=== PATIENT | male | born 1985 ===

== ENCOUNTER 2017-02-02 20:02 | Inpatient (IN) ==
--- NOTE | 2017-02-02 20:29 | Emergency Department Note ---
Arrival - Arrival Chief Complaint: Abdominal / Flank Pain Stated Complaint: Abd Pain ED Nursing Triage Note: Patient presents from [facility] with a complaint of abdominal pain. Initially presented to [facility] with hyperventilation, per report he drank a red bull and smoked marijuana. Found to have elevated WBC. Mode of Arrival: Stretcher Time Seen by Provider: 02/02/17 20:26 - History of Present Illness HPI Narrative: This is a 31-year-old male who presents from the [facility] he presented with abdominal pain and hyperventilation with carpal pedal spasm was found to have a 23,000 white blood cell count. Because of his abdominal pain he was sent to the emergency department at [place] for further evaluation. He has a history of seizure disorder but has not had a seizure recently. Allergies/Adverse Reactions: Allergies Allergy/AdvReac Type Severity Reaction Status Date / Time No Known Allergies Allergy Unverified 02/02/17 20:09 Home Medications: Home Medications Medication Instructions Recorded Confirmed Type No Known Home Medications [No 02/02/17 02/02/17 History Known Home Medications] Review of System - Review of System Constitutional: Absent: fever, night sweats Eyes: Absent: redness, vision change Head/Ears/Nose/Throat: Absent: epistaxis, nasal drainage Respiratory: Absent: respiratory distress, wheezing Cardiovascular: Absent: dyspnea on exertion, orthopnea Gastrointestinal: Present: abdominal pain. Absent: diarrhea, constipation Genitourinary male: Absent: dysuria, hematuria, discharge Musculoskeletal: Absent: joint swelling, lower back pain, neck pain Skin: Absent: change in color, change in hair/nails Neurological: Absent: numbness, paresthesias Psychiatric: Absent: suicidal thoughts, homicidal thoughts Endocrine: Absent: heat intolerance, polydipsia Hematological/Lymphatic: Absent: easy bruising, lymphadenopathy Allergic/Immunologic: Absent: urticaria, itchy eyes Medical,Surgical,& Family Hx - Medical History Neurology: History of: Seizures - Social History Smoking Status: Unknown if ever smoked Frequency of Alcohol Use: Occasionally Type of Drug Use: Marijuana Exam Vital Signs: Vital Signs Temperature 98.6 F 02/02/17 20:03 Pulse Rate 74 02/02/17 20:03 Respiratory Rate 22 02/02/17 20:03 Blood Pressure 128/81 02/02/17 20:03 O2 Sat by Pulse Oximetry 99 08/20/17 20:03 - General Exam limited due to: ALOC - Head Head exam: Present: atraumatic, normocephalic - Eye Eye exam: Present: normal appearance, PERRL, EOMI - ENT ENT exam: Present: normal exam, normal oropharynx - Neck Neck exam: Present: normal inspection, full ROM - Chest Chest inspection: Present: normal inspection - Respiratory Respiratory exam: Present: normal lung sounds bilaterally - Cardiovascular Cardiovascular exam: Present: regular rate, normal rhythm - Abdominal Exam Abdominal exam: Present: other (Diffuse tenderness without guarding or rebound) - Extremities Exam Extremities exam: Present: normal inspection, full ROM - Back Exam Back exam: Present: normal inspection, full ROM - Neurological Exam Neurological exam: Present: alert, oriented X3 - Psychiatric Psychiatric exam: Present: normal affect, normal mood - Skin Skin exam: Present: warm, dry
[2017-02-02] MEDS ORDERED: KETOROLAC 30 MG/1 ML VIAL IV STA (20:32)
[2017-02-02] MEDS ORDERED: KETOROLAC 30 MG/1 ML VIAL ONE (20:37)
[2017-02-02 20:41] LABS: Basophils # 0.1 10*3/uL (0.0-0.2); Basophils % 0.2 % (0.0-0.8); Eosinophils # 0.1 10*3/uL (0.0-0.87); Eosinophils % 0.3 % (0.00-10.9); Hematocrit 40.3 VOL% (42.0-52.0); Hemoglobin 13.8 GM/DL (14.0-18.0); Immature Granulocytes % 0.6 %; Immature Granulocytes Absolute 0.12 #; Lymphocytes # 1.8 10*3/uL (1.4-4.0); Lymphocytes % 8.4 % (21.2-54.2); Mean Corpuscular HGB Conc 34.2 GM/DL (32-36); Mean Corpuscular Hemoglobin 31 PG (27-34); Mean Platelet Volume 9.6 FL (9.6-12.0); Monocytes # 1.4 10*3/uL (0.11-0.8); Monocytes % 6.6 % (1.7-12.7); Neutrophils # 17.5 10*3/uL (1.4-7.4); Neutrophils % 83.9 % (38.7-73.9); Platelet Count 321 T/CUMM (130-400); Red Blood Count 4.43 MC/CUMM (3.8-5.5); Red Cell Distribution Width 12.4 % (9.3-17.3); White Blood Count 20.9 T/CUMM (4-12)
[2017-02-02 20:54] LABS: Apearance,Urine CLEAR (Clear); Bilirubin,Urine Negative (Negative); Blood, Urine Small mg/dL (Negative); Glucose,Urine (UA) Negative (Negative); Ketones,Urine Negative (Negative); Nitrite,Urine Negative (Negative); Protein,Urine Negative; RBC,Urine 8 /HPF (0-4); Urine Color Colorless (Yellow); Urine Specific Gravity 1.018 (1.001-1.035); Urine Urobilinogen < 2.0 EU/DL (0.2-1.0); WBC,Urine 2 /HPF (0-6)
[2017-02-02 20:57] LABS: Alanine Aminotransferase 14 U/L (16-61); Albumin 3.6 G/DL (3.4-5.0); Alkaline Phosphatase 62 U/L (45-117); Aspartate Amino Transferase 16 U/L (0-37); Barbiturates Screen,Urine Negative (Negative); Benzodiazepines Screen,Urine Negative (Negative); Bilirubin,Total < 0.39 MG/DL (0.2-1.0); Blood Urea Nitrogen 7 MG/DL (7-18); Calcium 8.4 MG/DL (8.5-10.1); Cannabinoid Screen,Urine Positive (Negative); Glucose 99 MG/DL (74-106); Opiate Screen,Urine Positive (Negative); Osmolality,Calculated 280.1 MOS/KG (273-304); Phencyclidine Screen,Urine Negative (Negative); Potassium 4.1 MMOL/L (3.5-5.1); Sodium 142 MMOL/L (136-145); Total Protein 6.1 G/DL (6.4-8.3)
[2017-02-02 22:24] LABS: Ammonia 33 UMOL/L (11-32)
[2017-02-02 22:27] LABS: Lactic Acid 1.4 MMOL/L (0.4-2.0)
[2017-02-02] MEDS ORDERED: ONDANSETRON 4 MG/2 ML VIAL IV PRN (22:42)
[2017-02-03] MEDS: MORPHINE 2 MG/1 ML SYRINGE IV PRN ×5 (00:39→21:21)
[2017-02-03] MEDS: LACTATED RINGERS 1,000 ML IV SCH ×3 (00:40→18:29)
[2017-02-03 06:49] LABS: Basophils % 0.3 % (0.0-0.8); Eosinophils # 0.2 10*3/uL (0.0-0.87); Eosinophils % 1.8 % (0.00-10.9); Hematocrit 39.9 VOL% (42.0-52.0); Hemoglobin 13.5 GM/DL (14.0-18.0); Immature Granulocytes % 0.7 %; Immature Granulocytes Absolute 0.08 #; Lymphocytes # 2.3 10*3/uL (1.4-4.0); Lymphocytes % 19.5 % (21.2-54.2); Mean Corpuscular HGB Conc 33.8 GM/DL (32-36); Mean Corpuscular Hemoglobin 31 PG (27-34); Mean Corpuscular Volume 91.5 FL (87-102); Mean Platelet Volume 9.3 FL (9.6-12.0); Monocytes % 8.8 % (1.7-12.7); Neutrophils # 8.1 10*3/uL (1.4-7.4); Neutrophils % 68.9 % (38.7-73.9); Platelet Count 303 T/CUMM (130-400); Red Blood Count 4.36 MC/CUMM (3.8-5.5); Red Cell Distribution Width 12.6 % (9.3-17.3); White Blood Count 11.7 T/CUMM (4-12)
--- NOTE | 2017-02-03 07:04 | General Surg History&Physical ---
Assessment and Plan - Time spent with patient Time spent with patient: Greater than 30 minutes (1) Abdominal pain Status: Acute Assessment and plan: Please note that this note is a late entry. I actually saw patient earlier this morning. Etiology of his pain is unclear. I do not see a clear explanation on imaging. His exam is unusual. He is not giving a good history and only will whisper an answer to me. Apparently he was the same way with the staff in the emergency room last night. I asked him if it hurt to talk and he said no. We will check a gallbladder ultrasound. Current Visit: Yes Qualifiers: Abdominal location: left upper quadrant Qualified Code(s): R10.12 - Left upper quadrant pain History of Present Illness Chief complaint: Abdominal pain History of present illness: Mr. Butterfield is a 31 year old male Who for over a month says that he has had abdominal pain. Pain became worse about 3 days ago. He says that it is severe and localized in his left upper quadrant and then radiates to his right upper quadrant. The pain is intermittent and more recently has become constant. It is associated with nausea but no vomiting. He has not had a change in appetite. He does not know of any aggravating or alleviating factors. He does not know if it is related to meals. He has had normal bowel movements. He has not had any passage of blood or vomiting blood. He had a CT scan obtained for which I do not have a formal report but apparently the outside radiologist at night read as negative. Home Medications Medication Instructions Recorded Confirmed Type No Known Home Medications [No 02/02/17 02/02/17 History Known Home Medications] Allergies Allergy/AdvReac Type Severity Reaction Status Date / Time No Known Allergies Allergy Unverified 02/02/17 20:09 Medical,Surgical,& Family Hx - Medical History Neurology: History of: Seizures - Surgical History Surgical History: noncontributory - Family History Family History: noncontributory - Social History Smoking Status: Current some day smoker Frequency of Alcohol Use: Occasionally Type of Drug Use: Marijuana Exam - Constitutional Vitals: Period Temp Pulse Resp BP Sys/Ambrocio Pulse Ox Last 24 Hr 98.2 F-98.6 F 54-74 12-22 115-139/77-90 97-100 General appearance: no acute distress - Head Head exam: Present: normocephalic - Eye Eye exam: Absent: scleral icterus Pupils: Present: EASTON - Neck Neck exam: Present: trachea midline. Absent: tenderness, thyromegaly - Respiratory Respiratory exam: Present: clear to auscultation bilaterally. Absent: accessory muscle use - Cardiovascular Cardiovascular exam: Present: RRR - GI/Abdominal GI/Abdominal exam: Present: normal bowel sounds, guarding, tenderness, soft, other (His abdominal exam is difficult. He seems to be much less tender if he is distracted and talking to me). Absent: distended, mass, rebound - Extremities Exam Extremities exam: Absent: edema - Neurological Exam Neurological exam: Present: alert, oriented X3. Absent: motor sensory deficit Speech: Present: normal - Skin Skin exam: Present: normal color - Constitutional Constitutional: Present: chills. Absent: anorexia, fever(s), weight loss - Cardiovascular Cardiovascular: Absent: chest pain at rest, chest pain with activity, dyspnea, dyspnea on exertion, syncope - Respiratory Respiratory: Absent: dyspnea, hemoptysis, dyspnea on exertion - Gastrointestinal Gastrointestinal: Present: abdominal pain, nausea. Absent: bloating, constipation, cramping, diarrhea, hematemesis, hematochezia, vomiting, jaundice - Genitourinary Genitourinary: Present: difficulty urinating. Absent: hematuria - Musculoskeletal Musculoskeletal: Absent: back pain - Neurological Neurological: Absent: focal weakness, syncope - Endocrine Endocrine: Absent: polyuria Hematologic/Lymphatic: Absent: easy bleeding, easy bruising Quality Measures - VTE Contraindication to Pharmacological VTE Prophylaxis: High Risk of Bleeding Results - Labs CBC & BMP: 02/03/17 06:23 02/02/17 20:18 Lab Results: I have reviewed the past 24 hour labs - Diagnostic Findings Procedure: CT Abdomen and Pelvis: image reviewed by me
--- NOTE | 2017-02-03 07:04 | CT Report ---
CT of the abdomen and pelvis with intravenous contrast. No oral contrast was administered. Axial images were obtained with sagittal and coronal reconstructions. Indication: Right lower quadrant abdominal pain. 100 cc Omni 350. Comparison: Exam from earlier the same day. This study was The previous study is from an outside hospital. There is a preliminary report from [facility]. The heart is normal in size. There are hypoaeration changes present within the lung bases. The liver is normal in size and density. The left lobe of the liver wraps around the anterior aspect of the spleen. Within the far left lobe of the liver, there is a 10 mm hypodensity, with vague margins, still visible on the delayed images. There is no biliary ductal dilatation. The spleen is normal in size. There is no adrenal enlargement. The kidneys are normal in size, location, and contour, without focal lesion or hydronephrosis. The ureters are normal in course and caliber. A Arcos catheter is in place within within the urinary bladder. No discrete urinary bladder abnormality is seen. There is no free air or free fluid noted within the peritoneal cavity. The abdominal aorta is of normal caliber. There is no pancreatic abnormality seen. No adenopathy is noted. The gastric contour is normal. The loops of small intestine are not dilated. The terminal ileum and appendix present a normal appearance. The appendix is not dilated, measuring 4.7 mm in diameter. There is no wall thickening or surrounding inflammation. No air is seen within the appendix. The colon is not dilated. There is no colonic wall thickening seen. There are bilateral L5 pars defects, without malalignment. Impression: 1. Hypoaeration changes at the lung bases. 2. 10 mm nonspecific liver lesion. Most commonly in a patient of this age, mildly complicated cyst versus hemangioma. 3. The appendix is of normal diameter without inflammatory change seen. 4. Bilateral L5 pars defects without malalignment. The CT exam was performed using one or more of the following dose reduction techniques: Automated exposure control, adjustment of the mA and/or kV according to patient size, or use of iterative reconstruction technique. PROCEDURE INTERPRETED AT [facility] DEPARTMENT OF RADIOLOGY Final Report Signed by: Dr. Lori Burton
[2017-02-03 07:10] LABS: Albumin 3.4 G/DL (3.4-5.0); Bilirubin,Total 0.5 MG/DL (0.2-1.0); Calcium 8.5 MG/DL (8.5-10.1); Osmolality,Calculated 278.1 MOS/KG (273-304); Potassium 4.3 MMOL/L (3.5-5.1); Total Protein 5.9 G/DL (6.4-8.3)
--- NOTE | 2017-02-03 07:50 | Ultrasound Report ---
Gallbladder ultrasound. Indication: Right upper quadrant abdominal pain. The liver is normal in size and density. No focal liver lesion is identified. The lesion seen on CT is not visible on the ultrasound, likely due to its far left location, projecting over the stomach. There is no intrahepatic biliary ductal dilatation. The common duct measures 4.1 mm. No gallstones are seen. There is no gallbladder wall thickening or fluid around the gallbladder. The right kidney presents a normal appearance. The pancreas is partially obscured by bowel gas. Visualized portions appear normal. The IVC is patent. Where visualized, the abdominal aorta is of normal caliber. Impression: Likely due to its location, the small lesion in the liver is not visible by ultrasound. The Ultrasound images were captured and stored. PROCEDURE INTERPRETED AT [facility] DEPARTMENT OF RADIOLOGY Final Report Signed by: Dr. Lori Burton
[2017-02-03] MEDS: PANTOPRAZOLE 40 MG TABLET PO SCH (08:06)
[2017-02-04] MEDS: MORPHINE 2 MG/1 ML SYRINGE IV PRN ×2 (01:15→20:03)
[2017-02-04] MEDS: LACTATED RINGERS 1,000 ML IV SCH ×3 (02:49→19:20)
[2017-02-04] MEDS ORDERED: MAGNESIUM HYDROXIDE SUSP 30 ML UDCUP PO PRN (06:41)
[2017-02-04] MEDS ORDERED: BISACODYL 10 MG SUPP RECTAL PRN (06:42)
[2017-02-04] MEDS: PANTOPRAZOLE 40 MG TABLET PO SCH (08:10)
--- NOTE | 2017-02-04 12:19 | General Surgery Progress Note ---
Assessment and Plan (1) Abdominal pain Status: Acute Assessment and plan: Please note that this note is a late entry. I actually saw patient earlier this morning. Etiology of his pain is unclear. I do not see a clear explanation on imaging. His exam is unusual. He is not giving a good history and only will whisper an answer to me. Apparently he was the same way with the staff in the emergency room last night. I asked him if it hurt to talk and he said no. We will check a gallbladder ultrasound. 02/04: He feels a little better but it is difficult to get much history from him. He is awake and alert but will only whisper an answer. He does not communicate well. He states that he still has some abdominal pain. His abdomen is nontender distracting him and talking to me. His ultrasound was negative. He is asking for food and states that he is hungry. I think this probably means that we do not have a significant intra-abdominal process going on I will recheck his lab. Current Visit: Yes Qualifiers: Abdominal location: left upper quadrant Qualified Code(s): R10.12 - Left upper quadrant pain Subjective Patient reports: Present: feels better, pain is less. Absent: nausea, vomiting , fever Exam - Constitutional Vitals: Period Temp Pulse Resp BP Sys/Ambrocio Pulse Ox Last 24 Hr 97.4 F-97.9 F 48-76 16-18 118-145/73-81 94-99 General appearance: no acute distress - Respiratory Respiratory exam: Absent: accessory muscle use - GI/Abdominal GI/Abdominal exam: Present: soft. Absent: distended, tenderness Results - Labs CBC & BMP: 02/03/17 06:23 02/03/17 06:23 Lab Results: I have reviewed the past 24 hour labs Quality Measures - VTE Contraindication to Pharmacological VTE Prophylaxis: High Risk of Bleeding Specialty Discharge - Follow Up or Referrals Follow up with: Daniel Cali III., MD [Physician] -
[2017-02-04 13:03] LABS: Basophils # 0.1 10*3/uL (0.0-0.2); Basophils % 0.7 % (0.0-0.8); Eosinophils # 0.1 10*3/uL (0.0-0.87); Eosinophils % 1.1 % (0.00-10.9); Hematocrit 40.4 VOL% (42.0-52.0); Hemoglobin 13.9 GM/DL (14.0-18.0); Immature Granulocytes % 0.4 %; Immature Granulocytes Absolute 0.04 #; Lymphocytes # 1.5 10*3/uL (1.4-4.0); Lymphocytes % 16.6 % (21.2-54.2); Mean Corpuscular HGB Conc 34.4 GM/DL (32-36); Mean Corpuscular Hemoglobin 31 PG (27-34); Mean Corpuscular Volume 90.6 FL (87-102); Mean Platelet Volume 9.4 FL (9.6-12.0); Monocytes # 0.5 10*3/uL (0.11-0.8); Neutrophils # 6.7 10*3/uL (1.4-7.4); Neutrophils % 75.2 % (38.7-73.9); Platelet Count 320 T/CUMM (130-400); Red Blood Count 4.46 MC/CUMM (3.8-5.5); Red Cell Distribution Width 12.1 % (9.3-17.3); White Blood Count 8.9 T/CUMM (4-12)
[2017-02-04 13:34] LABS: Albumin 3.5 G/DL (3.4-5.0); Bilirubin,Total 0.5 MG/DL (0.2-1.0); Calcium 8.9 MG/DL (8.5-10.1); Osmolality,Calculated 279.3 MOS/KG (273-304); Potassium 4.3 MMOL/L (3.5-5.1); Total Protein 6.3 G/DL (6.4-8.3)
[2017-02-04] MEDS: ACETAMINOPHEN 325 MG TABLET PO PRN (15:03)
--- NOTE | 2017-02-04 15:05 | Gastrointestinal Consult Note ---
Assessment and Plan (1) Abdominal pain Status: Acute Assessment and plan: 02/04-Sudden onset of abdominal pain with associated nausea without vomiting, precipiated by meals, wavering in intensity and duration. CT of abdomen w/o acute abdominal processes noted. Hx of THC use with report of drinking two energy drinks and smoking THC prior to onset. No prior endoscopy in the past. Plan and addendum to follow by Dr Zepeda. Current Visit: Yes Qualifiers: Abdominal location: left upper quadrant Qualified Code(s): R10.12 - Left upper quadrant pain History of Present Illness Chief complaint: Abdominal pain History of present illness: Mr. Butterfield is a 31 year old male who was admitted to the hospital with report of abdominal pain x 3 days. Pt is a fair historian and doesnt offer very much information. No family present during visit. Pt states he was in his usual state of health until Friday night. He states he smoked THC and drank two energy drinks just prior to onset. Shortly after this he had a fairly sudden onset of mid umbilical abdominal pain that radiated across his abdomen and was associated with nausea w/o vomiting. He states the pain lasted for several minutes at a time and was not relieved by any known factors. He was initially seen at [facility] and evaluated with CT of abdomen which was found to be negative [place] [id number]. Pt was then referred to our facility for further evaluation. Pt states he has never had pain like this before. He states he has had no vomiting, denies any melena or hematochezia. He denies any regular NSAID use other than occasional Ibruprofen. He states he does not drink alcohl regular or use other illicit drugs other than THC. He denies any associated weight loss but states he has had chills with this. On admission to our facility he had a CT of abdomen without acute abdominal findings noted. Gallbaldder ultrasound is negative. WBC are unremarkable today and he is afebrile. Home Medications Medication Instructions Recorded Confirmed Type No Known Home Medications [No 02/02/17 02/02/17 History Known Home Medications] Allergies Allergy/AdvReac Type Severity Reaction Status Date / Time No Known Allergies Allergy Unverified 02/02/17 20:09 Medical,Surgical,& Family Hx - Medical History Neurology: History of: Seizures - Social History Smoking Status: Current some day smoker Frequency of Alcohol Use: Occasionally Type of Drug Use: Marijuana 12 point system: reviewed and no additional remarkable complaints except as stated - Constitutional Constitutional: Present: as per HPI - EENT Eyes: Present: as per HPI Ears: Present: as per HPI Nose, mouth and throat: Present: as per HPI, dysphagia - Cardiovascular Cardiovascular: Present: as per HPI - Respiratory Respiratory: Present: as per HPI - Gastrointestinal Gastrointestinal: Present: as per HPI, abdominal pain, nausea - Genitourinary Genitourinary: Present: as per HPI - Musculoskeletal Musculoskeletal: Present: as per HPI - Neurological Neurological: Present: as per HPI - Psychiatric Psychiatric: Present: as per HPI - Endocrine Endocrine: Present: as per HPI - Hematologic/Lymphatic Hematologic/Lymphatic: Present: as per HPI Exam - Constitutional Vitals: Period Temp Pulse Resp BP Sys/Ambrocio Pulse Ox Last 24 Hr 97.4 F-97.9 F 48-76 16-18 118-145/73-81 94-99 General appearance: normal weight, no acute distress - Head Head exam: Present: normal inspection, normocephalic - Eye Eye exam: Present: other (lids and conjunctiva unremarkable). Absent: scleral icterus - ENT ENT exam: Present: normal exam, normal oropharynx - Neck Neck exam: Present: normal inspection - Respiratory Respiratory exam: Present: clear to auscultation bilaterally. Absent: rales, rhonchi, wheezes - Cardiovascular Cardiovascular exam: Present: regular rate and rhythm. Absent: diastolic murmur , JVD, systolic murmur - GI/Abdominal GI/Abdominal exam: Present: normal bowel sounds, tenderness, soft. Absent: ascites, distended, mass, organomegaly - Extremities Exam Extremities exam: Present: normal inspection, full ROM - Back Exam Back exam: Present: normal inspection - Neurological Exam Neurological exam: Present: alert, oriented X3 - Psychiatric Psychiatric exam: Present: normal affect, normal mood - Skin Skin exam: Present: normal color, warm, dry Results - Labs CBC & BMP: 02/04/17 12:30 02/04/17 12:30 Lab Results: I have reviewed the past 24 hour labs - Diagnostic Findings Procedure: CT Abdomen and Pelvis: report reviewed by me Quality Measures - VTE Contraindication to Pharmacological VTE Prophylaxis: High Risk of Bleeding Specialty Discharge - Follow Up or Referrals Follow up with: Daniel Cali III., MD [Physician] -
[2017-02-05] MEDS: LACTATED RINGERS 1,000 ML IV SCH ×3 (03:31→15:20)
[2017-02-05] MEDS: PANTOPRAZOLE 40 MG TABLET PO SCH (10:09)
--- NOTE | 2017-02-05 13:28 | History and Physical Update ---
History and Physical Update - History and Physical H&P was reviewed, the patient examined and there: are no changes in the patients condition since last H&P was completed. - Physical Exam Mental Status: alert and oriented Heart: regular rate and rhythm Lung: clear to auscultation Abdomen: within normal limits Vitals: within normal limits
--- NOTE | 2017-02-05 13:40 | Operative Note ---
Date of procedure: 02/05/17 Pre-op diagnosis: Upper abdominal pain, dysphagia Procedure: Procedure: Esophagogastroduodenoscopy with bougie dilation esophagus Brief clinical abstract: 31-year-old male is admitted with recent upper abdominal pain and nausea. He also states that he has had difficulty swallowing solids the last few months intermittently. Indication for procedure: Upper abdominal pain, esophageal dysphagia Endoscopic findings:[After informed consent was obtained, the patient was placed in the left lateral decubitus position. The gastroscope was inserted in the upper esophagus under direct vision with no resistance encountered. Esophageal mucosa appeared normal down to the distal esophagus. There was a single longitudinal erosion around 5 mm in length extending to the squamocolumnar junction consistent with reflux etiology. A mildly obstructive fibrous appearing stricture was also noted at that level consistent with reflux cause. 2 cm hiatal hernia was noted. The endoscope was advanced in the stomach which was carefully examined including retroflexed view of the cardia and fundus with no abnormality seen. The pyloric channel was normal. In the duodenal bulb, there was a moderate amount of subepithelial hemorrhage and 2 white based ulcers ranging in size from 5-8 mm diameter. Second and third portion of the duodenum appeared normal. The endoscope was withdrawn and Rodriguez dilator size 54 Bulgarian inserted in the upper esophagus and advanced beyond the level of the GE junction with mild resistance encountered. No blood was noted on the dilator afterwards and he had no chest pain. He appeared to tolerate the procedure well. Impression: #1 erosive esophagitis and distal esophageal stricture secondary to GERD-status post bougie dilation #2 small hiatal hernia #3 duodenal bulb ulcers Recommendations: Twice daily PPI therapy for now. He will need treatment for Helicobacter pylori infection when his nausea has resolved. Could advance diet and discharge home if tolerating. Anesthesia: MAC Surgeon / Physician: Rojas Zepeda Estimated blood loss: none Specimens: none sent Condition: stable Disposition: post procedure unit Results - Labs CBC & BMP: 02/04/17 12:30 02/04/17 12:30 Discharge Plan - Discharge Medications No Action No Known Home Medications [No Known Home Medications] - Follow Up or Referral Follow Up: Daniel Cali III., MD [Physician] - - Forms/Instructions Instructions: Acute Abdominal Pain (DC)
--- NOTE | 2017-02-05 13:44 | Anesthesia Post-Op ---
Anesthesia Post OP - Post Ansesthetic Evaluation Patient seen in post op: Yes Resp: within normal limits CV: within normal limits Mental: within normal limits Temp: within normal limits [id number]: within normal limits Nausea and Vomiting: within normal limits Pain: within normal limits
--- NOTE | 2017-02-05 14:47 | General Surgery Progress Note ---
Assessment and Plan (1) Abdominal pain Status: Acute Assessment and plan: Please note that this note is a late entry. I actually saw patient earlier this morning. Etiology of his pain is unclear. I do not see a clear explanation on imaging. His exam is unusual. He is not giving a good history and only will whisper an answer to me. Apparently he was the same way with the staff in the emergency room last night. I asked him if it hurt to talk and he said no. We will check a gallbladder ultrasound. 02/04: He feels a little better but it is difficult to get much history from him. He is awake and alert but will only whisper an answer. He does not communicate well. He states that he still has some abdominal pain. His abdomen is nontender distracting him and talking to me. His ultrasound was negative. He is asking for food and states that he is hungry. I think this probably means that we do not have a significant intra-abdominal process going on I will recheck his lab. 02/05: He had upper endoscopy today which shows that the etiology of his pain is likely peptic ulcer disease. I discussed this case with Dr. Zepeda. I do not think that he needs IV antibiotics and I think that he is should be fine to go home with ulcer treatment. His abdomen appears better and I see no evidence of an acute abdomen. Current Visit: Yes Qualifiers: Abdominal location: left upper quadrant Qualified Code(s): R10.12 - Left upper quadrant pain Subjective Patient reports: Present: feels better, pain is less. Absent: nausea, vomiting Exam - Constitutional Vitals: Period Temp Pulse Resp BP Sys/Ambrocio Pulse Ox Last 24 Hr 97.6 F-98.8 F 55-70 13-24 105-152/69-094 96-100 General appearance: no acute distress - Head Head exam: Present: normocephalic - Eye Eye exam: Absent: scleral icterus - Respiratory Respiratory exam: Absent: accessory muscle use - GI/Abdominal GI/Abdominal exam: Present: soft. Absent: distended, tenderness Results - Labs CBC & BMP: 02/04/17 12:30 02/04/17 12:30 Lab Results: I have reviewed the past 24 hour labs Quality Measures - VTE Contraindication to Pharmacological VTE Prophylaxis: High Risk of Bleeding Specialty Discharge - Follow Up or Referrals Follow up with: Viraj,Bill III., MD [Physician] -
[2017-02-05] MEDS: ACETAMINOPHEN 325 MG TABLET PO PRN (15:05)
--- NOTE | 2017-02-05 15:45 | Discharge Summary ---
Hospital Course - Hospital Course Hospital Course: Patient is a 31-year-old male admitted to the general surgery service for acute abdominal pain. CT scan revealed a 10 mm nonspecific liver lesion likely complicated cyst versus hemangioma. Appendix appeared normal. No intra- abdominal findings to explain the pain is identified. Gallbladder ultrasound was performed without revealing biliary etiology of pain. Gastroenterology was consulted for further evaluation and performed EGD which revealed erosive esophagitis with distal esophageal stricture requiring dilation, small hiatal hernia, and duodenal bulb ulcers. Ultimately, Dr. Zepeda recommended to continue with PPI therapy twice daily as well as H pylori treatment. Patient was educated on low acid diet as well as the necessity for compliance for H. pylori and PPI therapy to prevent further complication. He should follow-up with gastroenterology as scheduled. No surgical follow-up is required. Diagnosis - Discharge Diagnosis (1) Erosive esophagitis Status: Acute (2) Esophageal stricture Status: Acute (3) Hiatal hernia Status: Acute (4) Duodenal bulb ulcer Status: Acute (5) Liver lesion Status: Acute Specialty Discharge - Follow Up or Referrals Follow up with: Daneil Cali III., MD [Physician] - (CALL NEEDED) Rojas Zepeda MD [Physician] - (Per Dr. Zepeda re: esophagitis, duodenal ulcers and h. pylori eradication testing) Discharge Plan - Discharge Data Disposition: Disch To Home/Self Care Condition at Discharge: Stable Discharge Diet: other (GERD diet see below) Activity: resume usual activities as tolerated Hygiene: no restrictions Driving: no restrictions Contact your physician if you experience:: fever over 101, Redness or swelling, Nausea/Vomiting, Bleeding (vomiting blood or coffee ground appearance, black stool or blood with bowel movement), pain uncontrolled by pain medications - Discharge Medications New Amoxicillin 2 tablet PO BID #56 tablet Clarithromycin [Biaxin] 500 mg PO Q12HR #28 tablet Pantoprazole Tab [Protonix Tab] 40 mg PO BID #60 tablet Ondansetron Tab [Zofran Tab] 4 mg PO Q6HR PRN #20 tablet PRN Reason: Nausea/Vomiting - Follow Up or Referral Follow Up: Daniel Cali III., MD [Physician] - (CALL NEEDED) Rojas Zepeda MD [Physician] - (Per Dr. Zepeda re: esophagitis, duodenal ulcers and h. pylori eradication testing) - Forms/Instructions Instructions: Hiatal Hernia (DC), Helicobacter Pylori (GEN), Diet for Ulcers and Gastritis (GEN), Gastroesophageal Reflux Disease (DC), Esophageal Stricture (DC) Additional Discharge Instructions: Pt to f/u in [address] scan abd/ pelvis in f/u liver lesion. Pt was notified by telephone and verbally expressed understanding of instructions and received information for scheduled appt on . See documents scanned. Exam - Constitutional Vitals: Period Temp Pulse Resp BP Sys/Ambrocio Pulse Ox Last 24 Hr 97.6 F-98.8 F 55-70 13-24 105-152/69-094 96-100 General appearance: no acute distress - Head Head exam: Present: normocephalic - Cardiovascular Cardiovascular exam: Present: regular rate and rhythm - GI/Abdominal GI/Abdominal exam: Present: normal bowel sounds, tenderness (epigastric), soft. Absent: distended, guarding - Extremities Exam Extremities exam: Absent: calf tenderness, edema - Neurological Exam Neurological exam: Present: alert, normal gait - Skin Skin exam: Present: normal color Discharge Results Procedures and tests throughout hospitalization: Pending Orders 02/02/17 21:51 Blood Culture Stat EGD on February 05, 2017 with bougie dilation of the esophagus. Findings included #1 erosive esophagitis #2 esophageal stricture #3 hiatal hernia #4 duodenal bulb ulcers Labs on day of discharge: Preliminary micro results at discharge 02/02/17 21:51 Blood Culture - Preliminary Blood No growth at 1 day 02/02/17 20:18 Blood Culture - Preliminary Blood No growth at 1 day - Imaging and Cardiology Procedure: CT Abdomen and Pelvis: image reviewed by me, report reviewed by me ( Liver lesion hemangioma versus comp gated cyst), Ultrasound: image reviewed by me, report reviewed by me (Gallbladder) DS: Provider Date of admission: 02/02/17 22:42 Primary care physician: Edith Fernandez MD Attending physician on admission: Daniel Cali III., Consults: 02/04/17 14:18 Consult to Physician [CONS] Routine Comment: for abdominal pain Consulting Provider: Rojas Zepeda Consulting Provider Notified: Yes When should Consulting Provider be notified: Now Consult to Specialist Group: Gastroenterology When should Consulting Provider be notified: Now Person Notified: marisela garcia Date Notified: 02/04/17 Time Notified: 14:25 Discharging clinician: Tia Johnson PA-C
[2017-02-05 16:16] VITALS: BP 133/76
== END 2017-02-05 18:22 | disposition home or self-care (01) | DRG 381 ==
LOC: EDBD → EDUNIT# → N.ED 20:02 → N.EDINP 22:42 → N.3E 23:12
PROVIDERS: ADMIT Surgery; ATTEND Surgery

== ENCOUNTER 2019-08-18 22:40 | Inpatient (IN) ==
[2019-08-18] MEDS ORDERED: PIPERACILLIN/TAZOBACTAM 3,375 MG in SODIUM CHLORIDE 0.9% 100 ML IV STA (23:13)
[2019-08-19] MEDS ORDERED: ACETAMINOPHEN 325 MG TABLET PO PRN (00:22)
[2019-08-19] MEDS: SODIUM CHLORIDE 0.9% 1,000 ML IV SCH ×4 (00:56→16:24)
[2019-08-19] MEDS: HYDROmorphone 2 MG/1 ML VIAL IV PRN ×5 (00:59→19:42)
[2019-08-19 05:13] LABS: Basophils # 0.1 10*3/uL (0.0-0.2); Basophils % 0.4 % (0.0-0.8); Eosinophils # 0.1 10*3/uL (0.0-0.87); Eosinophils % 0.9 % (0.00-10.9); Hematocrit 37.6 VOL% (42.0-52.0); Hemoglobin 12.2 GM/DL (14.0-18.0); Immature Granulocytes % 0.8 %; Immature Granulocytes Absolute 0.09 #; Lymphocytes # 1.1 10*3/uL (1.4-4.0); Lymphocytes % 9.5 % (21.2-54.2); Mean Corpuscular HGB Conc 32.4 GM/DL (32-36); Mean Corpuscular Volume 92.4 FL (87-102); Mean Platelet Volume 8.9 FL (9.6-12.0); Monocytes % 9.3 % (1.7-12.7); Neutrophils % 79.1 % (38.7-73.9); Platelet Count 378 T/CUMM (130-400); Red Blood Count 4.07 MC/CUMM (3.8-5.5); Red Cell Distribution Width 12.3 % (9.3-17.3)
[2019-08-19 05:53] LABS: Albumin 3.1 G/DL (3.4-5.0); Bilirubin,Total 1.3 MG/DL (0.2-1.0); Calcium 8.3 MG/DL (8.5-10.1); Osmolality,Calculated 277.4 MOS/KG (273-304); Total Protein 6.6 G/DL (6.4-8.3)
[2019-08-19] MEDS: levETIRAcetam 500 MG TABLET PO SCH ×2 (06:05→22:15)
[2019-08-19] MEDS ORDERED: BUPIVACAINE MPF 0.25% 30 ML VIAL ONE (08:05)
[2019-08-19] MEDS ORDERED: TISSUE ADHESIVE 1 EACH APPLICATOR TOP ONE (08:05)
[2019-08-19] MEDS ORDERED: LIDOCAINE 1%/EPI INJ 20 ML VIAL ONE (08:05)
[2019-08-19] MEDS ORDERED: diphenhydrAMINE 50 MG/1 ML VIAL IV PRN (09:54)
[2019-08-19] MEDS ORDERED: ONDANSETRON 4 MG/2 ML VIAL IV PRN (09:54)
[2019-08-19] MEDS ORDERED: MEPERIDINE 25 MG/1 ML VIAL IV PRN (09:54)
[2019-08-19] MEDS ORDERED: propofoL 200 MG/20 ML VIAL IV ONE (09:59)
[2019-08-19] MEDS ORDERED: SEVOFLURANE 1 UNIT/15 MINUTE INH ONE (09:59)
[2019-08-19] MEDS ORDERED: LIDOCAINE 2% 5 ML VIAL ONE (09:59)
[2019-08-19] MEDS ORDERED: ACETAMINOPHEN 1,000 MG/100 ML VIAL IV ONE (10:00)
[2019-08-19] MEDS ORDERED: ONDANSETRON 4 MG/2 ML VIAL ONE ×2 (10:00→10:16)
[2019-08-19] MEDS ORDERED: ROCURONIUM 100 MG/10 ML VIAL IV ONE (10:00)
[2019-08-19] MEDS ORDERED: fentaNYL 250 MCG/5 ML VIAL ONE (10:00)
[2019-08-19] MEDS ORDERED: SUCCINYLCHOLINE 200 MG/10 ML VIAL ONE (10:00)
[2019-08-19] MEDS ORDERED: MIDAZOLAM 2 MG/2 ML VIAL ONE (10:00)
[2019-08-19] MEDS ORDERED: fentaNYL 100 MCG/2 ML VIAL ONE (10:00)
[2019-08-19] MEDS ORDERED: MEPERIDINE 25 MG/1 ML VIAL ONE (10:16)
[2019-08-19] MEDS: PIPERACILLIN/TAZOBACTAM 3,375 MG in SODIUM CHLORIDE 0.9% 100 ML IV SCH ×2 (10:53→22:15)
[2019-08-19] MEDS: PANTOPRAZOLE 40 MG VIAL IV SCH (10:53)
[2019-08-19] MEDS: ONDANSETRON 4 MG/2 ML VIAL IV PRN (19:43)
[2019-08-20] MEDS: SODIUM CHLORIDE 0.9% 1,000 ML IV SCH ×3 (00:22→19:06)
[2019-08-20] MEDS: HYDROmorphone 2 MG/1 ML VIAL IV PRN ×5 (01:12→20:25)
[2019-08-20] MEDS: PIPERACILLIN/TAZOBACTAM 3,375 MG in SODIUM CHLORIDE 0.9% 100 ML IV SCH ×3 (05:19→20:28)
[2019-08-20] MEDS ORDERED: PROMETHAZINE 25 MG/1 ML VIAL IM ONE (07:27)
[2019-08-20] MEDS: PANTOPRAZOLE 40 MG VIAL IV SCH (08:59)
[2019-08-20] MEDS: levETIRAcetam 500 MG TABLET PO SCH ×2 (08:59→20:27)
[2019-08-20] MEDS: ONDANSETRON 4 MG/2 ML VIAL IV PRN (12:36)
[2019-08-21] MEDS: SODIUM CHLORIDE 0.9% 1,000 ML IV SCH ×3 (00:16→16:36)
[2019-08-21] MEDS: HYDROmorphone 2 MG/1 ML VIAL IV PRN ×5 (02:00→20:58)
[2019-08-21] MEDS: PIPERACILLIN/TAZOBACTAM 3,375 MG in SODIUM CHLORIDE 0.9% 100 ML IV SCH ×3 (05:43→20:58)
[2019-08-21 06:15] LABS: Basophils % 0.2 % (0.0-0.8); Eosinophils # 0.2 10*3/uL (0.0-0.87); Hematocrit 39.5 VOL% (42.0-52.0); Hemoglobin 12.7 GM/DL (14.0-18.0); Immature Granulocytes Absolute 0.16 #; Lymphocytes # 1.7 10*3/uL (1.4-4.0); Lymphocytes % 10.9 % (21.2-54.2); Mean Corpuscular HGB Conc 32.2 GM/DL (32-36); Mean Corpuscular Volume 91.6 FL (87-102); Mean Platelet Volume 9.6 FL (9.6-12.0); Monocytes % 7.9 % (1.7-12.7); Platelet Count 418 T/CUMM (130-400); Red Blood Count 4.31 MC/CUMM (3.8-5.5); White Blood Count 15.9 T/CUMM (4-12)
[2019-08-21 06:59] LABS: Calcium 8.9 MG/DL (8.5-10.1); Osmolality,Calculated 269.8 MOS/KG (273-304)
[2019-08-21] MEDS: levETIRAcetam 500 MG TABLET PO SCH ×2 (09:20→20:58)
[2019-08-21] MEDS: PANTOPRAZOLE 40 MG VIAL IV SCH (10:39)
[2019-08-21] MEDS: metroNIDAZOLE INJ 500 MG in PREMIX 1 EACH IV SCH ×2 (10:45→18:07)
[2019-08-21] MEDS: LACTATED RINGERS 1,000 ML IV SCH ×2 (13:56→19:30)
[2019-08-22] MEDS: HYDROmorphone 2 MG/1 ML VIAL IV PRN ×5 (00:06→22:38)
[2019-08-22] MEDS: metroNIDAZOLE INJ 500 MG in PREMIX 1 EACH IV SCH ×3 (04:22→20:55)
[2019-08-22] MEDS: PIPERACILLIN/TAZOBACTAM 3,375 MG in SODIUM CHLORIDE 0.9% 100 ML IV SCH ×3 (06:07→22:38)
[2019-08-22 07:11] LABS: Basophils # 0.1 10*3/uL (0.0-0.2); Basophils % 0.3 % (0.0-0.8); Eosinophils # 0.3 10*3/uL (0.0-0.87); Eosinophils % 2.2 % (0.00-10.9); Hematocrit 37.4 VOL% (42.0-52.0); Immature Granulocytes % 1.1 %; Immature Granulocytes Absolute 0.16 #; Lymphocytes # 1.6 10*3/uL (1.4-4.0); Lymphocytes % 10.5 % (21.2-54.2); Mean Corpuscular HGB Conc 32.1 GM/DL (32-36); Mean Corpuscular Volume 91.9 FL (87-102); Mean Platelet Volume 9.3 FL (9.6-12.0); Monocytes % 9.5 % (1.7-12.7); Neutrophils % 76.4 % (38.7-73.9); Platelet Count 382 T/CUMM (130-400); Red Blood Count 4.07 MC/CUMM (3.8-5.5); Red Cell Distribution Width 12.3 % (9.3-17.3); White Blood Count 14.8 T/CUMM (4-12)
[2019-08-22] MEDS: SODIUM CHLORIDE 0.9% 1,000 ML IV SCH ×3 (08:00→16:22)
[2019-08-22] MEDS: LACTATED RINGERS 1,000 ML IV SCH ×2 (08:00→15:30)
[2019-08-22] MEDS: levETIRAcetam 500 MG TABLET PO SCH ×2 (09:54→22:36)
[2019-08-22] MEDS: PANTOPRAZOLE 40 MG VIAL IV SCH (09:55)
[2019-08-23] MEDS: HYDROmorphone 2 MG/1 ML VIAL IV PRN ×4 (02:01→20:35)
[2019-08-23] MEDS: metroNIDAZOLE INJ 500 MG in PREMIX 1 EACH IV SCH ×3 (02:03→18:21)
[2019-08-23] MEDS: PIPERACILLIN/TAZOBACTAM 3,375 MG in SODIUM CHLORIDE 0.9% 100 ML IV SCH ×3 (06:19→20:34)
[2019-08-23 06:24] LABS: Basophils % 0.3 % (0.0-0.8); Eosinophils # 0.4 10*3/uL (0.0-0.87); Eosinophils % 3.1 % (0.00-10.9); Hematocrit 36.1 VOL% (42.0-52.0); Immature Granulocytes % 1.6 %; Lymphocytes # 1.6 10*3/uL (1.4-4.0); Lymphocytes % 12.4 % (21.2-54.2); Mean Corpuscular HGB Conc 33.2 GM/DL (32-36); Mean Corpuscular Volume 90.3 FL (87-102); Mean Platelet Volume 8.9 FL (9.6-12.0); Monocytes % 10.8 % (1.7-12.7); Neutrophils % 71.8 % (38.7-73.9); Platelet Count 447 T/CUMM (130-400); Red Cell Distribution Width 12.1 % (9.3-17.3); White Blood Count 12.9 T/CUMM (4-12)
[2019-08-23 06:31] LABS: Calcium 8.5 MG/DL (8.5-10.1); Osmolality,Calculated 275.5 MOS/KG (273-304)
[2019-08-23] MEDS: levETIRAcetam 500 MG TABLET PO SCH ×2 (09:32→20:34)
[2019-08-23] MEDS: PANTOPRAZOLE 40 MG VIAL IV SCH (10:03)
[2019-08-23] MEDS: LACTATED RINGERS 1,000 ML IV SCH ×2 (10:54→14:55)
[2019-08-23] MEDS: SODIUM CHLORIDE 0.9% 1,000 ML IV SCH ×2 (11:01→17:40)
[2019-08-24] MEDS: ONDANSETRON 4 MG/2 ML VIAL IV PRN (00:50)
[2019-08-24] MEDS: SODIUM CHLORIDE 0.9% 1,000 ML IV SCH ×2 (00:56→09:00)
[2019-08-24] MEDS: metroNIDAZOLE INJ 500 MG in PREMIX 1 EACH IV SCH ×3 (01:51→18:11)
[2019-08-24] MEDS: HYDROmorphone 2 MG/1 ML VIAL IV PRN ×4 (04:32→23:31)
[2019-08-24] MEDS: PIPERACILLIN/TAZOBACTAM 3,375 MG in SODIUM CHLORIDE 0.9% 100 ML IV SCH ×3 (04:35→21:15)
[2019-08-24] MEDS: levETIRAcetam 500 MG TABLET PO SCH ×2 (08:59→21:15)
[2019-08-24] MEDS: LACTATED RINGERS 1,000 ML IV SCH ×3 (09:00→18:01)
[2019-08-24] MEDS: PANTOPRAZOLE 40 MG VIAL IV SCH (09:32)
[2019-08-25] MEDS: metroNIDAZOLE INJ 500 MG in PREMIX 1 EACH IV SCH ×2 (02:48→09:51)
[2019-08-25] MEDS: PIPERACILLIN/TAZOBACTAM 3,375 MG in SODIUM CHLORIDE 0.9% 100 ML IV SCH ×2 (05:38→14:20)
[2019-08-25] MEDS: HYDROmorphone 2 MG/1 ML VIAL IV PRN (05:44)
[2019-08-25 06:07] LABS: Basophils # 0.1 10*3/uL (0.0-0.2); Basophils % 0.7 % (0.0-0.8); Eosinophils # 0.3 10*3/uL (0.0-0.87); Eosinophils % 3.8 % (0.00-10.9); Hematocrit 37.5 VOL% (42.0-52.0); Immature Granulocytes % 4.4 %; Lymphocytes # 2.1 10*3/uL (1.4-4.0); Lymphocytes % 22.8 % (21.2-54.2); Mean Corpuscular Volume 92.8 FL (87-102); Mean Platelet Volume 8.7 FL (9.6-12.0); Monocytes % 9.1 % (1.7-12.7); Neutrophils % 59.2 % (38.7-73.9); Platelet Count 512 T/CUMM (130-400); Red Blood Count 4.04 MC/CUMM (3.8-5.5); Red Cell Distribution Width 12.4 % (9.3-17.3)
[2019-08-25 06:22] LABS: Calcium 8.4 MG/DL (8.5-10.1); Osmolality,Calculated 278.3 MOS/KG (273-304)
[2019-08-25] MEDS: levETIRAcetam 500 MG TABLET PO SCH (09:46)
[2019-08-25] MEDS: PANTOPRAZOLE 40 MG VIAL IV SCH (09:47)
[2019-08-25] MEDS: LACTATED RINGERS 1,000 ML IV SCH ×2 (10:32→13:20)
[2019-08-25] MEDS: ONDANSETRON 4 MG/2 ML VIAL IV PRN (11:00)
[2019-08-25 11:08] VITALS: BP 124/73
== END 2019-08-25 15:34 | disposition home or self-care (01) | DRG 340 ==
LOC: EDBD → EDUNIT# → N.ED 22:40 → N.EDINP 22:40 → N.3E 08-19 00:05
PROVIDERS: ADMIT Surgery; ATTEND Surgery